=== PATIENT | male | born 1970 | race Caucasian/White ===

== ENCOUNTER 2024-06-22 09:12 | Outpatient (CLI) | payer OTHER | END 2024-06-22 23:59 | disposition home or self-care (01) | LOC: MRI02 09:12 | PROVIDERS: ATTEND Nurse Practitioner | DX: S46.911A Strain of unspecified muscle, fascia and tendon at shoulder and upper arm level, right arm, initial encounter (principal); G56.01 Carpal tunnel syndrome, right upper limb; M70.821 Other soft tissue disorders related to use, overuse and pressure, right upper arm; G56.21 Lesion of ulnar nerve, right upper limb; S46.911D Strain of unspecified muscle, fascia and tendon at shoulder and upper arm level, right arm, subsequent encounter; M75.101 Unspecified rotator cuff tear or rupture of right shoulder, not specified as traumatic; S56.911A Strain of unspecified muscles, fascia and tendons at forearm level, right arm, initial encounter; M75.41 Impingement syndrome of right shoulder; S66.911A Strain of unspecified muscle, fascia and tendon at wrist and hand level, right hand, initial encounter; X58.XXXA Exposure to other specified factors, initial encounter; Y93.89 Activity, other specified; M89.311 Hypertrophy of bone, right shoulder; Y92.89 Other specified places as the place of occurrence of the external cause; Y99.8 Other external cause status | CPT/HCPCS: 73221 ==